=== PATIENT | male | born 1940 | race Asian ===

== ENCOUNTER → 2020-02-10 | Outpatient (CLI) | payer MEDICAID ==
[~2020-02-10] MED LIST: ASPI-1497 PO; BENA20TA10 PO; CLOP75TA4 PO; CRES10 PO; DABI150C PO; DIGO250T PO; METF-414 PO; SACU1TAB7 PO; SENN1TAB35 PO; SIMV10TA97 PO
== END | disposition home or self-care (01) ==
LOC: LAB 15:30
PROVIDERS: ATTEND Surgery
DX: Z01.812 Encounter for preprocedural laboratory examination (principal); Z20.828 Contact with and (suspected) exposure to other viral communicable diseases
CPT/HCPCS: C9803; U0003

== ENCOUNTER 2020-02-12 05:37 | Inpatient (IN) | payer MEDICARE, MEDICAID ==
[~2020-02-12] VITALS: Ht 190.5 cm; Wt 83.0 kg
[2020-02-12] VITALS (23 sets, daily range): BP systolic 61–129; BP diastolic 20–69
[~2020-02-12 05:37] MED LIST changes: -ASPI-1497 PO; -BENA20TA10 PO; -CLOP75TA4 PO; -DIGO250T PO; -METF-414 PO; -SIMV10TA97 PO
[2020-02-12] MEDS ORDERED: LACTATED RINGERS 1,000 ML IV SCH (06:30)
[2020-02-12 06:33] LABS: CHLORIDE 112 mEq/L (98-107)
[2020-02-12] MEDS ORDERED: SKIN ADHESIVE 0.7 GM EA TOP ONE (06:44)
[2020-02-12] MEDS ORDERED: LEVOFLOXACIN 500MG PREMIX 100 ML IV ONE (06:44)
[2020-02-12] MEDS ORDERED: METRONIDAZOLE 500 MG PREMIX 100 ML IV ONE (06:45)
[2020-02-12] MEDS ORDERED: BUPIVACAINE HCL 0.5% (5MG/ML) 50ML ONE (06:45)
[2020-02-12] MEDS ORDERED: BUPIVACAINE HCL/PF 0.5% (5MG/ML) 10ML ONE (06:45)
[2020-02-12] MEDS ORDERED: INDOCYANINE GREEN 25 MG VIAL IV ONE (06:46)
[2020-02-12] MEDS ORDERED: ONDANSETRON HCL 4MG/2ML INJ IV PRN (07:00)
[2020-02-12] MEDS ORDERED: MORPHINE SULFATE 4 MG/ML CPJ (NOT FOR IM USE) IV PRN (07:00)
[2020-02-12] MEDS ORDERED: LEVOFLOXACIN 500MG PREMIX 100 ML IV SCH (07:00)
[2020-02-12] MEDS ORDERED: ACETAMINOPHEN 650MG SUPP PR PRN (07:00)
[2020-02-12] MEDS ORDERED: CEFAZOLIN SODIUM 1000MG/VIAL ONE (07:10)
[2020-02-12] MEDS ORDERED: GLYCOPYRROLATE 0.2 MG/ML 2ML VIAL ONE (07:10)
[2020-02-12] MEDS ORDERED: ROCURONIUM BROMIDE 10MG/ML VIAL 5ML IV ONE ×2 (07:10→07:41)
[2020-02-12] MEDS ORDERED: FENTANYL CITRATE/PF 50MCG/ML 2ML VIAL ONE (07:10)
[2020-02-12] MEDS ORDERED: LIDOCAINE HCL/PF 1% 10 MG/ML 5ML VIAL ONE (07:10)
[2020-02-12] MEDS ORDERED: NEOSTIGMINE METHYLSULFATE 1MG/ML 10 ML VIAL ONE (07:10)
[2020-02-12] MEDS ORDERED: PROPOFOL 200MG/20ML VIAL IV ONE (07:10)
[2020-02-12] MEDS ORDERED: SODIUM CHLORIDE 0.9% 10ML VIAL ONE (07:10)
[2020-02-12] MEDS: METRONIDAZOLE 500 MG PREMIX 100 ML IV SCH (07:15)
[2020-02-12] MEDS ORDERED: EPHEDRINE SULFATE 50MG/ML VIAL ONE (07:33)
[2020-02-12] MEDS ORDERED: MORPHINE SULFATE 2 MG/ML CPJ (NOT FOR IM USE) IV PRN (10:45)
[2020-02-12] MEDS ORDERED: MEPERIDINE HCL/PF 25MG/ML CPJ IV PRN (10:45)
[2020-02-12] MEDS ORDERED: METOCLOPRAMIDE HCL 10MG/2ML VIAL IV NR (10:45)
[2020-02-12 11:15] LABS: BG BASE EXCESS -7.8 mmol/L (-2.0-2.0); BG CARBOXYHEMOGLOBIN 0.1 % (0.5-1.5); BG DEOXYHEMOGLOBIN 7.9 % (0.0-5.0); BG METHEMOGLOBIN 0.3 % (0.0-1.5); BG OXYGEN SATURATION 92.1 % (92.0-98.5); BG OXYHEMOGLOBIN 91.7 % (94.0-97.0); BG PCO2 151.9 mmHg (35.0-45.0); BG PH 6.868 (7.350-7.450); BG PO2 110.9 mmHg (75.0-100.0); BG TOTAL HEMOGLOBIN 9.4 g/dL (12.0-18.0)
[2020-02-12 12:27] LABS: BG BASE EXCESS -7.9 mmol/L (-2.0-2.0); BG CARBOXYHEMOGLOBIN 0.2 % (0.5-1.5); BG DEOXYHEMOGLOBIN 2.6 % (0.0-5.0); BG FRACTION INSPIRED OXYGEN 100; BG HCO3 ACT 19.9 mmol/L (22.0-26.0); BG METHEMOGLOBIN 0.3 % (0.0-1.5); BG OXYGEN SATURATION 97.4 % (92.0-98.5); BG OXYHEMOGLOBIN 96.9 % (94.0-97.0); BG PO2 427.2 mmHg (75.0-100.0); BG SAMPLE SITE RIGHT RADIAL; BG TOTAL HEMOGLOBIN 8.9 g/dL (12.0-18.0); BG VENT MODE VENT - AC
[2020-02-12 12:28] LABS: BG FRACTION INSPIRED OXYGEN 100; BG SAMPLE SITE RIGHT RADIAL; BG VENT MODE RESUS BAG
[2020-02-12] MEDS ORDERED: NALOXONE HCL 0.4 MG/ML 1ML VIAL IV NR (13:00)
[2020-02-12] MEDS ORDERED: PROPOFOL 10MG/ML 100ML 100 ML IV PRN (13:30)
[2020-02-12] MEDS ORDERED: SODIUM BICARBONATE 8.4% 1 MEQ/ML 50ML SYR IV NR ×2 (13:30→16:00)
[2020-02-12] MEDS ORDERED: PHENYLEPHRINE 100 MG in DEXT 5% WATER 240 ML IV PRN (13:30)
[2020-02-12] MEDS ORDERED: SODIUM BICARBONATE 8.4% 1 MEQ/ML 50ML SYR IV ONE (13:41)
[2020-02-12] MEDS ORDERED: DIGOXIN 500MCG/2ML AMP IV NR (13:57)
[2020-02-12] MEDS ORDERED: DIGOXIN 500MCG/2ML AMP ONE (14:06)
[2020-02-12 14:07] LABS: BG BASE EXCESS -5.9 mmol/L (-2.0-2.0); BG CARBOXYHEMOGLOBIN 0.2 % (0.5-1.5); BG DEOXYHEMOGLOBIN 3.4 % (0.0-5.0); BG FRACTION INSPIRED OXYGEN 50; BG HCO3 ACT 21.1 mmol/L (22.0-26.0); BG METHEMOGLOBIN 0.3 % (0.0-1.5); BG OXYGEN SATURATION 96.6 % (92.0-98.5); BG OXYHEMOGLOBIN 96.1 % (94.0-97.0); BG PCO2 49.1 mmHg (35.0-45.0); BG PH 7.252 (7.350-7.450); BG PO2 186.6 mmHg (75.0-100.0); BG SAMPLE SITE RIGHT RADIAL; BG TOTAL HEMOGLOBIN 9.4 g/dL (12.0-18.0); BG VENT MODE VENT - AC
[2020-02-12] MEDS ORDERED: DIGOXIN 500MCG/2ML AMP IV STA (14:13)
[2020-02-12] MEDS ORDERED: DILTIAZEM HCL 125 MG in DEXT 5% WATER 100 ML IV ONE (14:15)
[2020-02-12] MEDS: PHENYLEPHRINE 50 MG in DEXT 5% WATER 245 ML IV PRN (14:55)
[2020-02-12 15:08] LABS: BG BASE EXCESS -7.7 mmol/L (-2.0-2.0); BG CARBOXYHEMOGLOBIN 0.2 % (0.5-1.5); BG DEOXYHEMOGLOBIN 3.2 % (0.0-5.0); BG FRACTION INSPIRED OXYGEN 50; BG HCO3 ACT 19.5 mmol/L (22.0-26.0); BG METHEMOGLOBIN 0.3 % (0.0-1.5); BG OXYGEN SATURATION 96.8 % (92.0-98.5); BG OXYHEMOGLOBIN 96.3 % (94.0-97.0); BG PCO2 47.3 mmHg (35.0-45.0); BG PH 7.232 (7.350-7.450); BG PO2 194.9 mmHg (75.0-100.0); BG SAMPLE SITE RIGHT RADIAL; BG TOTAL HEMOGLOBIN 9.4 g/dL (12.0-18.0); BG TOTAL RESPIRATORY RATE 22 b/min; BG VENT MODE VENT - AC
[2020-02-12] MEDS: DEXT 5%/0.45% NACL KCL 20MEQ/L 1,000 ML IV SCH (16:29)
[2020-02-12] MEDS ORDERED: FUROSEMIDE 40MG/4ML VIAL IVP NR (16:30)
[2020-02-12] MEDS: MORPHINE SULFATE 2 MG/ML CPJ (NOT FOR IM USE) IV PRN (18:21)
[2020-02-12] MEDS: IPRATROPIUM BROMIDE (0.02%) 0.5MG/2.5ML NEB HHN SCH (19:53)
[2020-02-12 20:06] LABS: HEMATOCRIT. 28.4 % (42.0-52.0); HEMOGLOBIN. 8.4 g/dL (14.0-18.0); MEAN CORPUSCULAR HEMOGLOBIN 20.1 pg (28.0-32.0); MEAN CORPUSCULAR VOLUME 68.1 fL (80.0-94.0); MEAN PLATELET VOLUME 7.7 fl (7.4-10.4); PLATELET 248 x1000/uL (130-400); RED BLOOD CELL COUNT 4.17 mill/uL (4.7-6.1); RED CELL DISTRIBUTION WIDTH 18.3 % (11.6-14.6)
[2020-02-12 20:12] LABS: CHLORIDE 109 mEq/L (98-107)
[2020-02-12] MEDS: FAMOTIDINE 20MG/2ML VIAL IV SCH (20:19)
[2020-02-12 20:58] LABS: PLATELET ESTIMATE NORMAL
[2020-02-13] VITALS (30 sets, daily range): BP systolic 83–125; BP diastolic 42–85
[2020-02-13] MEDS: METRONIDAZOLE 500 MG PREMIX 100 ML IV SCH (00:01)
[2020-02-13] MEDS: PHENYLEPHRINE 50 MG in DEXT 5% WATER 245 ML IV PRN (01:07)
[2020-02-13] MEDS: IPRATROPIUM BROMIDE (0.02%) 0.5MG/2.5ML NEB HHN SCH ×4 (01:53→20:23)
[2020-02-13] MEDS: DEXT 5%/0.45% NACL KCL 20MEQ/L 1,000 ML IV SCH ×2 (05:22→19:28)
[2020-02-13 05:42] LABS: BASOPHILS % 0.1 % (0.0-2.0); HEMATOCRIT. 25.6 % (42.0-52.0); HEMOGLOBIN. 7.7 g/dL (14.0-18.0); LYMPHOCYTES % 11.4 % (20.0-50.0); MEAN CORPUSCULAR HEMOGLOBIN 20.3 pg (28.0-32.0); MEAN CORPUSCULAR VOLUME 67.7 fL (80.0-94.0); MEAN PLATELET VOLUME 8.5 fl (7.4-10.4); MONOCYTES % 11.2 % (2.0-8.0); NEUTROPHILS % 77.3 % (40.0-76.0); PLATELET 215 x1000/uL (130-400); RED BLOOD CELL COUNT 3.78 mill/uL (4.7-6.1); RED CELL DISTRIBUTION WIDTH 18.5 % (11.6-14.6)
[2020-02-13 05:52] LABS: CHLORIDE 110 mEq/L (98-107)
[2020-02-13 06:01] LABS: PHOSPHORUS 2.6 mg/dL (2.5-4.9)
[2020-02-13] MEDS: MORPHINE SULFATE 2 MG/ML CPJ (NOT FOR IM USE) IV PRN ×4 (06:44→18:37)
[2020-02-13] MEDS: FAMOTIDINE 20MG/2ML VIAL IV SCH ×2 (08:09→19:49)
[2020-02-13 08:50] LABS: BG BASE EXCESS -0.4 mmol/L (-2.0-2.0); BG CARBOXYHEMOGLOBIN 0.3 % (0.5-1.5); BG DEOXYHEMOGLOBIN 3.2 % (0.0-5.0); BG FRACTION INSPIRED OXYGEN 40; BG HCO3 ACT 24.4 mmol/L (22.0-26.0); BG METHEMOGLOBIN 0.3 % (0.0-1.5); BG OXYGEN SATURATION 96.8 % (92.0-98.5); BG OXYHEMOGLOBIN 96.2 % (94.0-97.0); BG PCO2 40.4 mmHg (35.0-45.0); BG PH 7.399 (7.350-7.450); BG PO2 188.5 mmHg (75.0-100.0); BG SAMPLE SITE RIGHT RADIAL; BG TOTAL HEMOGLOBIN 7.9 g/dL (12.0-18.0); BG VENT MODE VENT - AC
[2020-02-13] MEDS ORDERED: SODIUM CHLORIDE 0.9% 250 ML IV ONE (09:00)
[2020-02-13 10:32] LABS: BG BASE EXCESS 0.7 mmol/L (-2.0-2.0); BG CARBOXYHEMOGLOBIN 0.3 % (0.5-1.5); BG DEOXYHEMOGLOBIN 3.1 % (0.0-5.0); BG FRACTION INSPIRED OXYGEN 40; BG HCO3 ACT 25.5 mmol/L (22.0-26.0); BG METHEMOGLOBIN 0.2 % (0.0-1.5); BG OXYGEN SATURATION 96.9 % (92.0-98.5); BG OXYHEMOGLOBIN 96.4 % (94.0-97.0); BG PCO2 41.3 mmHg (35.0-45.0); BG PH 7.408 (7.350-7.450); BG PO2 171.7 mmHg (75.0-100.0); BG SAMPLE SITE RIGHT RADIAL; BG TOTAL RESPIRATORY RATE 16 b/min; BG VENT MODE VENT - CPAP
[2020-02-13] MEDS ORDERED: LORAZEPAM 2MG/ML CPJ IV PRN (19:45)
[2020-02-14] VITALS (24 sets, daily range): BP systolic 103–142; BP diastolic 51–92
[2020-02-14] MEDS: IPRATROPIUM BROMIDE (0.02%) 0.5MG/2.5ML NEB HHN SCH ×4 (02:09→20:15)
[2020-02-14] MEDS: MORPHINE SULFATE 2 MG/ML CPJ (NOT FOR IM USE) IV PRN ×2 (02:32→17:50)
[2020-02-14] MEDS: FAMOTIDINE 20MG/2ML VIAL IV SCH ×2 (08:16→20:05)
[2020-02-14] MEDS: DEXT 5%/0.45% NACL KCL 20MEQ/L 1,000 ML IV SCH (08:16)
[2020-02-14] MEDS ORDERED: DILTIAZEM HCL 120MG CAPSULE CD 24HR PO NR (12:00)
[2020-02-15] VITALS (16 sets, daily range): BP systolic 93–144; BP diastolic 48–110
[2020-02-15] MEDS: MORPHINE SULFATE 2 MG/ML CPJ (NOT FOR IM USE) IV PRN ×2 (00:45→07:41)
[2020-02-15] MEDS: IPRATROPIUM BROMIDE (0.02%) 0.5MG/2.5ML NEB HHN SCH ×4 (01:42→20:59)
[2020-02-15 06:20] LABS: BASOPHILS % 0.2 % (0.0-2.0); EOSINOPHILS % 2.2 % (0.0-5.0); HEMATOCRIT. 25.2 % (42.0-52.0); HEMOGLOBIN. 7.7 g/dL (14.0-18.0); LYMPHOCYTES % 13.8 % (20.0-50.0); MEAN CORPUSCULAR HEMOGLOBIN 20.4 pg (28.0-32.0); MEAN CORPUSCULAR VOLUME 66.9 fL (80.0-94.0); MEAN PLATELET VOLUME 7.6 fl (7.4-10.4); MONOCYTES % 8.9 % (2.0-8.0); NEUTROPHILS % 74.9 % (40.0-76.0); PLATELET 201 x1000/uL (130-400); RED BLOOD CELL COUNT 3.76 mill/uL (4.7-6.1)
[2020-02-15 06:38] LABS: CHLORIDE 109 mEq/L (98-107)
[2020-02-15] MEDS: FAMOTIDINE 20MG/2ML VIAL IV SCH ×2 (09:22→21:28)
[2020-02-15] MEDS: DILTIAZEM HCL 120MG CAPSULE CD 24HR PO SCH (09:22)
[2020-02-15 10:40] LABS: PLATELET ESTIMATE NORMAL
[2020-02-16] VITALS (7 sets, daily range): BP systolic 112–131; BP diastolic 42–80
[2020-02-16] MEDS: IPRATROPIUM BROMIDE (0.02%) 0.5MG/2.5ML NEB HHN SCH ×3 (02:00→16:00)
[2020-02-16] MEDS: MORPHINE SULFATE 2 MG/ML CPJ (NOT FOR IM USE) IV PRN ×2 (02:13→16:41)
[2020-02-16] MEDS: DILTIAZEM HCL 120MG CAPSULE CD 24HR PO SCH (08:22)
[2020-02-16] MEDS: FAMOTIDINE 20MG/2ML VIAL IV SCH (08:22)
== END 2020-02-16 17:30 | disposition home or self-care (01) | DRG 231 ==
LOC: OR 05:37 → CVICU 05:38 → 6WST 02-15 10:30
PROVIDERS: ADMIT Internal Medicine Critical Care Medicine; ATTEND Surgery
PROC: 5A1945Z Respiratory Ventilation, 24-96 Consecutive Hours (ICD-10-PCS; principal; 2020-02-12)
PROC: 0DTF0ZZ Resection of Right Large Intestine, Open Approach (ICD-10-PCS; 2020-02-12)
PROC: 8E0W4CZ Robotic Assisted Procedure of Trunk Region, Percutaneous Endoscopic Approach (ICD-10-PCS; 2020-02-12)
DX: C18.3 Malignant neoplasm of hepatic flexure (principal); J96.02 Acute respiratory failure with hypercapnia; I49.5 Sick sinus syndrome; I42.9 Cardiomyopathy, unspecified; I48.20 Chronic atrial fibrillation, unspecified; I45.10 Unspecified right bundle-branch block; E78.5 Hyperlipidemia, unspecified; I25.10 Atherosclerotic heart disease of native coronary artery without angina pectoris; E87.2 Acidosis; T79.7XXA Traumatic subcutaneous emphysema, initial encounter; X58.XXXA Exposure to other specified factors, initial encounter; I50.9 Heart failure, unspecified; I11.0 Hypertensive heart disease with heart failure; D68.59 Other primary thrombophilia; K66.0 Peritoneal adhesions (postprocedural) (postinfection); Z85.038 Personal history of other malignant neoplasm of large intestine; Z95.0 Presence of cardiac pacemaker; Y93.89 Activity, other specified; Y92.89 Other specified places as the place of occurrence of the external cause; Y99.8 Other external cause status
CPT/HCPCS: 36415; 36600; 71045; 80048; 80053; 82375; 82805; 82962; 83735; 83880; 84100; 84478; 85025; 86850; 86900; 87070; 88307; 93005; 93306; 93970; 97116; 97162; 97530; J0690; J1160; J1940; J1956; J2270; J2310; J2704; J2710; J3010; J3490; J7060; Q9957